=== PATIENT | female | born 1960 | race Caucasian/White ===

== ENCOUNTER 2019-09-21 15:07 | Emergency (ER) | payer BC ==
--- NOTE | 2019-09-21 15:32 | EDM.PDOC ---
ED HPI GENERAL MEDICAL PROBLEM - General Chief Complaint: Laceration Stated Complaint: RT FOREARM LACERATION Time Seen by Provider: 09/21/19 15:25 Source of Information: Reports: Patient History Limitations: Reports: No Limitations - History of Present Illness INITIAL COMMENTS - FREE TEXT/NARRATIVE: Patient presents for evaluation of a laceration sustained to the anterior right forearm after tripping and striking that arm against the sharp edge of a stair. There was moderate bleeding at that time and she applied direct pressure. She jammed the end of her left little finger and also had a minimal contusion contact with the step with her right maxilla those areas are minimally uncomfortable. Her main concern is the laceration she is up-to-date with her tetanus immunization. Onset: Today Location: Reports: Upper Extremity, Right Quality: Reports: Ache Severity: Mild Improves with: Reports: None Worsens with: Reports: Movement Context: Reports: Trauma Associated Symptoms: Reports: No Other Symptoms - Related Data Allergies Allergy/AdvReac Type Severity Reaction Status Date / Time Penicillins Allergy Airway Verified 09/21/19 15:34 Tightness Sulfa (Sulfonamide Allergy Hives Verified 09/21/19 15:34 Antibiotics) Home Meds: Home Meds NK [No Known Home Meds] 09/21/19 [History] ED ROS GENERAL - Review of Systems Review Of Systems: Comprehensive ROS is negative, except as noted in HPI. ED EXAM, SKIN/RASH Exam: See Below Text/Narrative:: This is an adult female sitting with her forearm bandaged on the cart in room 7. Exam Limited By: No Limitations General Appearance: Alert Respiratory/Chest: No Respiratory Distress Cardiovascular: Regular Rate, Rhythm Extremities: Other (There is a slightly irregular bordered curvilinear 4 cm superficial laceration to the right anterior forearm. The wound gaps almost 0.5 cm at rest. Bleeding is controlled at this time. You can see fascia when looking into the wound but it has not been compromised.) Neurological: No Motor/Sensory Deficits Skin: Wound/Incision (As noted above in extremities.) ED SKIN PROCEDURES - Laceration/Wound Repair Right Anterior Arm Appearance: Superficial, Clean Distal NVT: Neuro & Vascular Intact Anesthetic Type: Local Local Anesthesia - Lidocaine (Xylocaine): 1% with EPI Skin Prep: Saline Saline Irrigation (cc's): 250 Exploration/Debridement/Repair: Wound Explored, Foreign Material Removed Closed with: Sutures Lac/Wound length In cm: 4 Suture Size: 4-0 # of Sutures: 7 Suture Type: Nylon, Interrupted Sterile Dressing Applied: Nurse Tetanus Status Addressed: Yes Complications: No Course - Vital Signs Last Recorded V/S: Last Vital Signs Temp 35.1 C L 09/21/19 15:37 Pulse 70 09/21/19 15:37 Resp 16 09/21/19 15:37 BP 129/69 09/21/19 15:37 Pulse Ox 97 09/21/19 15:37 - Orders/Labs/Meds Orders: Active Orders 24 hr Category Date Time Status Bacitracin [Bacitracin Oint 1 GM] Med 09/21/19 16:15 Once 1 dose TOP ONETIME ONE Lidocaine 1% w/EPINEPHrine [Xylocaine 1% with Med 09/21/19 15:45 Ordered EPINEPHrine 1:100,000] 2 ml INFILT ASDIRECTED Medication Orders Bacitracin (Bacitracin Oint 1 Gm) 1 dose TOP ONETIME ONE Stop: 09/21/19 16:16 Lidocaine/Epinephrine (Xylocaine 1% With Epinephrine 1:100,000) 2 ml INFILT ASDIRECTED [facility] Last Admin: 09/21/19 15:57 Dose: 2 ml Meds: Medications Generic Name Dose Route Start Last Admin Trade Name Freq PRN Reason Stop Dose Admin Bacitracin 1 dose 09/21/19 16:15 Bacitracin Oint 1 Gm TOP 09/21/19 16:16 ONETIME ONE Lidocaine/Epinephrine 2 ml 09/21/19 15:45 09/21/19 15:57 Xylocaine 1% With Epinephrine 1:100,000 INFILT 2 ml ASDIRECTED [facility] Administration - Re-Assessments/Exams Free Text/Narrative Re-Assessment/Exam: 09/21/19 16:28 The wound was anesthetized, irrigated, repaired. See related note elsewhere in this note. Bacitracin was applied and a bandage overlaid. The sutures, 7 of them , should remain in for 10 days. The first dressing should remain dry and intact for the first 3 days. She can then remove it, use water cleansing, apply bacitracin or Neosporin daily and a Band-Aid covering until sutures removed. Prescriptions sent for clindamycin 300 mg, 15 capsules; take 3 times daily until gone. Watch for signs of redness, pus development, lymphangitis. Return to ER with any concerns. 09/21/19 16:30 Departure - Departure Time of Disposition: 16:14 Disposition: Home, Self-Care 01 Condition: Good Clinical Impression: Laceration of forearm, right Qualifiers: Encounter type: initial encounter Qualified Code(s): S51.811A - Laceration without foreign body of right forearm, initial encounter - Discharge Information *PRESCRIPTION DRUG MONITORING PROGRAM REVIEWED*: Not Applicable *COPY OF PRESCRIPTION DRUG MONITORING REPORT IN PATIENT DARLIN: Not Applicable Referrals: PCP,None [Primary Care Provider] - Forms: ED Department Discharge Additional Instructions: Leave these stitches (7 of them) in for the next 10 days. Leave this first bandage on and keep it dry until Monday morning, 25 September. After that time, plain soap and water washing is fine. You can apply bacitracin or Neosporin ointment along the stitches and cover with a Band-Aid every day until the stitches are removed. He'll be started on clindamycin and, an antibiotic to use for 5 days. Watch for any signs of increased pain, redness, drainage, or red streaks going up the arm. Recheck here or with primary care if noticing those items. For your mother, Google "Power Pudding" recipes and review them with your mother to create something tasty that she could use as a constipation prevent her every day. If she needs to get "flushed out" having her use a model of magnesium citrate solution (nonprescription) would begin at the top and work its way through all of the intestines. Hopefully that will help her constipation. Return to ER with any additional concerns. Sepsis Event Note (ED) - Focused Exam Vital Signs: Vital Signs Temp Pulse Resp BP Pulse Ox 09/21/19 15:37 35.1 C L 70 16 129/69 97 09/21/19 15:21 35.1 C L 70 16 129/69 97 - My Orders Last 24 Hours: My Active Orders 09/21/19 15:45 Lidocaine 1% w/EPINEPHrine [Xylocaine 1% with EPINEPHrine 1:100,000] 2 ml INFILT ASDIRECTED 09/21/19 16:15 Bacitracin [Bacitracin Oint 1 GM] 1 dose TOP ONETIME ONE - Assessment/Plan Last 24 Hours: My Active Orders 09/21/19 15:45 Lidocaine 1% w/EPINEPHrine [Xylocaine 1% with EPINEPHrine 1:100,000] 2 ml INFILT ASDIRECTED 09/21/19 16:15 Bacitracin [Bacitracin Oint 1 GM] 1 dose TOP ONETIME ONE
[2019-09-21] MEDS ORDERED: Lidocaine 1% with EPINEPHrine 1:100,000 50 ML MDV INFILT SCH (15:45)
[2019-09-21] MEDS ORDERED: Bacitracin Oint 1 GM U/D Packet TOP ONE (16:15)
== END 2019-09-21 16:27 | disposition home or self-care (01) ==
LOC: JP.ED 15:07
DX: S51.811A Laceration without foreign body of right forearm, initial encounter (principal); Z88.0 Allergy status to penicillin; Z88.2 Allergy status to sulfonamides; W22.8XXA Striking against or struck by other objects, initial encounter
CPT/HCPCS: 12002; 99282-25